=== PATIENT | male | born 1945 | race Two or more races ===

== ENCOUNTER → 2017-06-12 | Day surgery (SDC) | payer OTHER ==
[~2017-06-12] MED LIST: ACETAMINOPHEN 325 MG TAB ONE; ACETYLCHOLINE CHL OPHT SOLN 1:100 2 ML VIAL ONE; BUPIVACAINE/EPINEPHRINE 0.5% PF 30 ML VIAL INFIL ONE; DEXAMETHASONE SOD PHOS 4 MG/ML VIAL ONE; EPINEPHrine HCL (1:1000) 1 MG/ML VIAL ONE; KETOROLAC TROMETHAMINE 30 MG/ML (IVP) VIAL IV PUSH ONE; LACTATED RINGER'S 1000 ML INJ 1,000 ML ONE; METO100T PO; MIDAZOLAM HCL 2 MG/2 ML VIAL ONE; MOXIFLOXACIN 0.5% OPHT SOLN 3 ML BTL ONE; ONDANSETRON HCL 4 MG/2 ML VIAL IV PUSH ONE; PHENYLEPHRINE HCL 10% OPTH SOLN 5 ML BTL ONE; PRED1SUS6 RIGHT EYE; PROPOFOL 200 MG/20 ML AMP IV ONE; SODIUM CHLORIDE 0.9% INJ 10 ML ONE; TETRACAINE 0.5% OPTH SOLN 4 ML BTL ONE; TOBRAMYCIN/DEXAMETHASONE OPTH OINT 3.5 GM TUBE ONE; TRIAMCINOLONE ACETONIDE 40 MG/ML VIAL ONE; ceFAZolin INJ 1,000 MG VIAL ONE; prednisoLONE ACETATE 1% OPHT SUSP 5 ML BTL ONE
--- NOTE | 2017-06-18 05:55 | MP ---
cc: LUIGI CALDERON MD DATE OF SURGERY: 06/12/2017 PREOPERATIVE DIAGNOSIS Dislocated posterior chamber intraocular lens left eye. POSTOPERATIVE DIAGNOSIS Dislocated posterior chamber intraocular lens left eye. PROCEDURE Pars vitrectomy, removal of dislocated posterior chamber intraocular lens, endolaser, insertion of anterior chamber intraocular lens ([id number], 14.5 diopter power). Intravitreal Kenalog left eye. COMPLICATIONS None. BLOOD LOSS Less than [address] More, general. INDICATIONS FOR PROCEDURE This is a delightful patient who presented with severe loss of vision with a dislocated posterior chamber intraocular lens of his left eye. Understanding the risks, benefits and alternatives, the patient elected for surgical correction. PROCEDURE NOTE After informed consent was obtained, the patient was brought to the operating room and general anesthesia was established. The left eye was prepped and draped in sterile fashion with Betadine in the conjunctival fornix. A three-port pars vitrectomy was established with self-retaining infusion cannula. The core vitreous with intravitreous traction was relieved with vitrectomy. Anterior chamber was filled with Viscoat. The dislocated posterior chamber intraocular lens was brought into the anterior chamber. A scleral tunnel was made with a 3.0 crescent blade and keratome. The posterior chamber intraocular lens was explanted. An anterior chamber intraocular lens, César [id number], 14.5 diopter power, was inserted into the anterior chamber and rotated into position with a Sinskey hook. The scleral tunnel was closed with 7-0 Vicryl suture. A superior peripheral iridectomy was made with vitrectomy. Scleral depression examination revealed areas of retinal weakening/tears which were treated with endolaser. Intravitreal Kenalog was instilled. The trocars were removed and sclerotomies closed with 7-0 Vicryl suture. Conjunctiva was reapproximated with 6-0 plain gut. Subconjunctival injection of Ancef and dexamethasone were given. The eye was patched with Tobramycin ointment. The patient was brought to the recovery room in stable condition and will continue followup with [facility] for his postoperative care. Luigi Calderon MD KW/SSB /12:08 AM /5:41 AM
== END | disposition home or self-care (01) ==
LOC: ESDC 10:13
PROVIDERS: ATTEND Ophthalmology
DX: T85.22XA Displacement of intraocular lens, initial encounter (principal)
CPT/HCPCS: 00142; 66985; 67121; J0171; J0690; J1100; J1885; J2250; J2405; J3010; J3301; J7120; V2630